=== PATIENT | female | born 1990 | race Two or more races ===

== ENCOUNTER 2017-05-29 19:24 | Emergency (ER) | payer MEDICAID, OTHER ==
[~2017-05-29] VITALS: Ht 175.3 cm; Wt 106.6 kg
[2017-05-29 23:38] VITALS: BP 133/89
[2017-05-30] MEDS ORDERED: TETANUS-DIPTH-ACEL PERTUSSIS 0.5ML SYRG IM ONE (00:15)
[2017-05-30] MEDS ORDERED: DIAZEPAM 5 MG TAB PO ONE (00:15)
== END 2017-05-30 01:32 | disposition home or self-care (01) ==
LOC: ER 19:27
DX: S13.4XXA Sprain of ligaments of cervical spine, initial encounter (principal); S93.402A Sprain of unspecified ligament of left ankle, initial encounter; R51 Headache; V49.49XA Driver injured in collision with other motor vehicles in traffic accident, initial encounter; Y93.89 Activity, other specified; Y92.488 Other paved roadways as the place of occurrence of the external cause; Y99.8 Other external cause status
CPT/HCPCS: 70450; 70486; 73600; 90471; 90715